=== PATIENT | female | born 1980 | race Caucasian/White ===

== ENCOUNTER 2018-10-04 07:35 | Emergency (ER) | payer BC, OTHER ==
[2018-10-04 07:40] VITALS: O2SAT 99
--- NOTE | 2018-10-04 07:57 | ED PDOC ---
HPI: General Adult Time Seen by Provider: 10/04/18 07:46 History Per: Patient Onset/Duration Of Symptoms: Other (1 month) Current Symptoms Are (Timing): Intermittent Episodes Severity: Moderate Pain Scale Rating Of: 4 Additional Complaint(s): Left sided neck and upper back pain radiating to left shoulder. Has had sxs x 1month, followed by orthopedist in [place]. Denies injury, weakness or parsthesias. Past Medical History Vital Signs: Last Vital Signs Temp 97.8 F 10/04/18 07:39 Pulse 73 10/04/18 07:39 Resp 18 10/04/18 07:39 BP 115/77 10/04/18 07:39 Pulse Ox 99 10/04/18 07:39 - Medical History PMH: No Chronic Diseases - Family History Family History: States: Unknown Family Hx - Home Medications Home Medications: Ambulatory Orders Medication Instructions Recorded Cyclobenzaprine [Cyclobenzaprine 10 mg PO Q8 #10 tab 10/04/18 HCl] Naproxen [Naprosyn] 500 mg PO Q12H #20 tab 10/04/18 - Allergies Allergies/Adverse Reactions: Allergies Allergy/AdvReac Type Severity Reaction Status Date / Time No Known Allergies Allergy Verified 10/04/18 07:54 Review of Systems Constitutional: Negative for: Fever Musculoskeletal: Positive for: Neck Pain, Back Pain Neurological: Negative for: Weakness, Numbness Physical Exam - Physical Exam Appears: Positive for: Non-toxic, No Acute Distress Skin: Positive for: Normal Color, Warm, DRY Neck: Positive for: Supple, Pain On Movement Of Neck. Negative for: Painless ROM (Pain on lateral flexion to left No spinal tenderness) Back: Positive for: Normal Inspection. Negative for: Vertebral Tenderness Neurologic/Psych: Positive for: Alert, Oriented. Negative for: Motor/Sensory Deficits - ECG O2 Sat by Pulse Oximetry: 99 Disposition - Clinical Impression Clinical Impression: Cervical radiculopathy - Patient ED Disposition Is Patient to be Admitted: No Counseled Patient/Family Regarding: Diagnosis, Need For Followup, Rx Given - Disposition Referrals: Jem Frederick III, MD [Staff Provider] - Disposition: Routine/Home Disposition Time: 07:58 Condition: FAIR Prescriptions: Cyclobenzaprine [Cyclobenzaprine HCl] 10 mg PO Q8 #10 tab Naproxen [Naprosyn] 500 mg PO Q12H #20 tab Instructions: Radiculopathy
[2018-10-04 08:58] VITALS: BP 110/72; PULSE 70; RESP 16; TEMP 97.6
== END 2018-10-04 08:57 | disposition home or self-care (01) ==
LOC: H.ER 07:35
DX: M54.12 Radiculopathy, cervical region (principal)
CPT/HCPCS: 81025; 96372; 99283; J1885